=== PATIENT | female | born 1970 | race Caucasian/White ===

== ENCOUNTER 2024-09-17 09:25 | Emergency (ER) | payer OTHER, SELFPAY ==
[2024-09-17 09:30] VITALS: BP 116/68
--- NOTE | 2024-09-17 13:22 | ED.GENMED ---
History of Present Illness
General
Chief Complaint: Musculo-Skeletal Complaint
Source: patient
Exam Limitations: none
Time Seen by Provider: 09/17/24 10:21
History of Present Illness
History of Present Illness:
This a 54-year-old female who presents for evaluation of the right knee. The patient states that she was hiking on 13 September. She states she fell and landed with her butt on her heel as she hyperflexed her right knee. She states since then has not
felt normal. Did recently have a meniscus repair a few months ago. She states since it has not been normal when she walks or goes up steps. No fevers. No significant swelling she notes. Patient states when she for started she felt sharp pain
toward the back of the knee. She does have an appointment follow-up with orthopedics
Past History
Past History
ED Past Medical History: Seizures
ED Past Surgical History: Orthopedic
Phy Exam
Physical Exam
Physical Exam:
CONSTITUTIONAL Vital signs reviewed, Patient alert and oriented to person, place and time. Well-appearing
HEAD atraumatic, normocephalic.
EYES eyelids normal to inspection, Extraocular muscles intact, Conjunctiva normal, Sclera normal.
NECK normal range of motion, Trachea midline, no jugular venous distention.
RESP no respiratory distress
BACK No obvious deformities
UPPER EXTREMITY Gross Range of motion normal, gross motor strength normal
LOWER EXTREMITY Gross range of motion normal, Gross motor strength normal. No significant effusion. No redness. Anterior and posterior drawer negative. No tibial sag. No real pain with valgus or varus stress. Normal distal pulses
NEURO Speech normal, No focal motor deficits include, Ana Cristina coma scale 15, Memory normal, Cranial Nerves intact to screening exam.
SKIN Skin warm, dry, and normal in color.
PSYCHIATRIC Patient oriented to person place and time, Normal affect.
Course
Orders/Labs/Results
Orders:
Orders
09/17/24 11:59
Knee, Right 4 or More Views [CR Knee- Right 4 Or More View*] Urgent
Comment:
Reason For Exam: fall
09/17/24 13:21
Knee Immobilizer Right-Treatme ONCE
Vital Signs
Initial and Last Documented VS:
Initial Vital Signs
Temp Pulse Resp BP Pulse Ox
98 F 88 16 116/68 98
09/17/24 09:30 09/17/24 09:30 09/17/24 09:30 09/17/24 09:30 09/17/24 09:30
Last Documented Vital Signs
Temp Pulse Resp BP Pulse Ox
98 F 88 16 116/68 98
09/17/24 09:30 09/17/24 09:30 09/17/24 09:30 09/17/24 09:30 09/17/24 09:30
MDM/Problems Addressed
Differential Diagnosis Includes:
ACL and PCL, medial meniscus injury, lateral meniscus injury, MCL injury, LCL injury
MDM/Problems Addressed:
Knee injury
*Radiology
Radiology exam reviewed: radiology read reviewed
*Pulse Oximetry
Patient hypoxic: no
*Critical Care Note
Total Time (30-74mins, 75-104mins- exclusive of procedures): Not Applicable
Data Reviewed
Source: patient
Patient Management
Escalation/DeEscalation of care consider admission/obs:
Imaging consistent with recent MRI as that lesion was seen on previous MRI. Knee immobilizer placed. Outpatient follow-up recommended with orthopedic
ED Attending Note
-
Portions of this chart may have been created with voice recognition software.� Occasional wrong word or��sound alike� substitutions may have occurred due to the inherent limitations of voice recognition software.
Discharge Plan
Departure
Patient Disposition: Home (Routine Discharge)
Date of Disposition: 09/17/24
Time of Disposition: 13:27
Patient with high blood pressure during this ER visit?: No
Discharge Problem:
Injury of knee
Instructions: Knee Immobilizer (DC), Knee Sprain (DC)
Referrals:
Denis Gonzalez MD [Family Provider] -
Activity Restrictions/Additional Instructions:
Please see orthopedics in follow-up as planned. Please consider outpatient MRI for further evaluation of your knee injury. Return immediately for increased swelling, increased pain, fevers or any other concerns.
Interventions
Interventions:
*Risk Screen - Suicide Last Done: 09/17/24 09:32
*General Assessment Last Done: 09/17/24 11:06
*Neglect/Abuse Screening Last Done: 09/17/24 09:32
*ED- Fall Risk Assessment Last Done: 09/17/24 11:06
*ED COVID-19 Vaccine History Last Done: 09/17/24 11:06
ED-Musculoskeletal Assessment Last Done: 09/17/24 11:06
Discharge Date and Time
Print Language: [place]ET[place]ESE
== END 2024-09-17 14:11 | disposition home or self-care (01) ==
LOC: EMR 09:25
PROVIDERS: EMERGENCY PHYSICIAN Emergency Medicine; FAMILY PHYSICIAN Internal Medicine
DX: S89.91XA Unspecified injury of right lower leg, initial encounter (principal); W19.XXXA Unspecified fall, initial encounter; Y93.01 Activity, walking, marching and hiking
CPT/HCPCS: 99283; 29505; 73564

== ENCOUNTER 2024-12-17 09:44 | Emergency (ER) | payer OTHER, SELFPAY ==
[2024-12-17 09:45] VITALS: BP 114/74
--- NOTE | 2024-12-17 10:37 | ED.GENMED ---
History of Present Illness
General
Chief Complaint: Musculo-Skeletal Complaint
Time Seen by Provider: 12/17/24 10:30
History of Present Illness
History of Present Illness:
54-year-old female presents to the emergency department for evaluation of left hip and groin pain. She states that she fell on a trampoline 3 weeks ago and had similar pain however not as severe, pain did resolve however yesterday after walking
[place] pain increased substantially. She is unable to bear weight without severe pain. Took ibuprofen and diazepam last night with only modest relief. No low back pain. Pain does radiate down the left leg
Past History
Past History
ED Past Medical History: Seizures
ED Past Surgical History: Orthopedic
Review of Systems
Review of Systems
Allergies reviewed?: Yes
All Other Systems: ROS reviewed and negative except as documented in HPI and ROS
Phy Exam
Physical Exam
Physical Exam:
GEN: Well appearing, NAD, WDWN
HEENT: Oral mucosa moist, no scleral icterus
Cardiac: Regular rate
Lung: No respiratory distress, no tachypnea
MSK: No gross deformity or injuries, no shortening or external rotation of the left lower extremity. Left hip range of motion is normal in all goncalves however there is severe pain elicited with active flexion and passive extension of the left hip.
Patient is essentially unable to maintain full hip extension. No abdominal tenderness. No focal tenderness to the left inguinal region
Skin: Good color, no pallor or jaundice, no rashes
Neuro: AO x3, moves all extremities freely
Psych: Calm, cooperative
Course
Orders/Labs/Results
Orders:
Orders
12/17/24 10:37
Ketorolac [Toradol] 30 mg IM NOW STA
CR Hip - LT w/wo Pel 2-3 Vw* Urgent
Comment:
Reason For Exam: L groin/hip pain
Include a pelvis x-ray?: Yes
Vital Signs
Initial and Last Documented VS:
Initial Vital Signs
Temp Pulse Resp BP Pulse Ox
98 F 82 16 114/74 96
12/17/24 09:45 12/17/24 09:45 12/17/24 09:45 12/17/24 09:45 12/17/24 09:45
Last Documented Vital Signs
Temp Pulse Resp BP Pulse Ox
98 F 82 16 114/74 96
12/17/24 09:45 12/17/24 09:45 12/17/24 09:45 12/17/24 09:45 12/17/24 10:39
MDM/Problems Addressed
MDM/Problems Addressed:
X-rays unremarkable, single dose of NSAIDs provided adequate pain relief. Likely hip flexor strain/tear. She has upcoming orthopedic surgery on the right knee next week and at this point we will encourage her to avoid NSAIDs unless directed
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
*Pulse Oximetry
SaO2: 96
Oxygen Mode of Delivery: Room air
Patient hypoxic: no
*Critical Care Note
Total Time (30-74mins, 75-104mins- exclusive of procedures): Not Applicable
ED Attending Note
-
Portions of this chart may have been created with voice recognition software.� Occasional wrong word or��sound alike� substitutions may have occurred due to the inherent limitations of voice recognition software.
Discharge Plan
Departure
Patient Disposition: Home (Routine Discharge)
Date of Disposition: 12/17/24
Time of Disposition: 11:57
Patient with high blood pressure during this ER visit?: No
Discharge Problem:
Strain of flexor muscle of left hip
Instructions: Lower Extremity Muscle Strain (DC)
Prescriptions:
New
oxycodone-acetaminophen [Percocet] 5-325 mg tablet
1 tab PO Q6HPRN PRN (Reason: pain) Qty: 8 0RF
Referrals:
Denis Gonzalez MD [Family Provider, Internal Medicine]
Activity Restrictions/Additional Instructions:
Due to your upcoming surgery we would recommend avoiding NSAID medication such as ibuprofen or naproxen. I will prescribe you pain medication to help with the hip pain. Please do not combine the pain medicine with the Valium or muscle relaxants as
this may cause excessive sedation. Follow-up with your orthopedist on Thursday to discuss appropriate medication therapy
Interventions
Interventions:
*Risk Screen - Suicide Last Done: 12/17/24 09:48
*General Assessment Last Done: 12/17/24 12:17
*Neglect/Abuse Screening Last Done: 12/17/24 09:48
*ED- Fall Risk Assessment Last Done: 12/17/24 12:17
*ED COVID-19 Vaccine History Last Done: 12/17/24 12:17
*Nursing Disposition Last Done: 12/17/24 12:17
ED-Musculoskeletal Assessment Last Done: 12/17/24 12:16
Discharge Date and Time
Discharge Date/Time: 12/17/24 12:10
Print Language: THAI
[2024-12-17] MEDS: TORADOL 30 MG IM (10:54)
== END 2024-12-17 12:10 | disposition home or self-care (01) ==
LOC: EMR 09:44
PROVIDERS: EMERGENCY PHYSICIAN Emergency Medicine; FAMILY PHYSICIAN Internal Medicine
DX: S76.012A Strain of muscle, fascia and tendon of left hip, initial encounter (principal); W19.XXXA Unspecified fall, initial encounter; Y93.44 Activity, trampolining
CPT/HCPCS: 96372; 99284; 73502